=== PATIENT | female | born 1970 | race Caucasian/White ===

== ENCOUNTER 2020-05-20 15:30 | Outpatient (REF) | payer OTHER, SELFPAY ==
[2020-05-20 16:43] LABS: MANUAL DIFF FLAG NO
[2020-05-20 16:53] LABS: Basophils Absolute Auto 0.1 X10*3/uL (0.0-0.2); Basophils Percent Auto 0.9 % (0-2); Eosinophils Absolute Auto 0.3 X10*3/uL (0.0-0.4); Eosinophils Percent Auto 4.1 % (0-4); Hematocrit 37.6 % (37-47); Hemoglobin 12.5 g/dl (12.0-16.0); Imm Gran Abs Auto 0.02 X10*3/uL (0.00-0.03); Imm Gran Pct Auto 0.3 % (0.0-0.4); Lymphocytes Absolute Auto 2.9 X10*3/uL (1.2-4.9); Lymphocytes Percent Auto 43.3 % (20-40); Mean Corpuscular HGB Conc 33.2 g/dl (31.0-35.0); Mean Corpuscular Hemoglobin 33.8 pg (27.0-33.0); Mean Corpuscular Volume 101.6 fL (80-98); Mean Platelet Volume 10.7 fL (9.4-12.3); Monocytes Absolute Auto 0.6 X10*3/uL (0.1-1.2); Monocytes Percent Auto 8.4 % (2-11); Neutrophils Absolute Auto 2.9 X10*3/uL (2.0-8.3); Platelet Count 270 X10*3/uL (160-400); Red Cell Distribution Width 13.1 % (11.0-16.0); White Blood Count 6.7 X10*3/uL (4.8-10.8)
[2020-05-20 18:14] LABS: Folate 10.3 ng/mL (> or = 4.0); Vitamin B12 298 pg/mL (200-900)
== END 2020-05-20 15:31 | disposition home or self-care (01) ==
LOC: HO.LAB 15:30
PROVIDERS: PCP Nurse Practitioner Family; Visit Provider Nurse Practitioner Family
DX: Z00.00 Encounter for general adult medical examination without abnormal findings (principal)
CPT/HCPCS: 36415; 82607; 82746; 85025

== ENCOUNTER 2020-10-25 07:05 | Outpatient (REF) | payer OTHER, SELFPAY ==
[2020-10-25 07:20] LABS: MANUAL DIFF FLAG NO
[2020-10-25 07:22] LABS: Basophils Absolute Auto 0.1 X10*3/uL (0.0-0.2); Basophils Percent Auto 1.4 % (0-2); Eosinophils Absolute Auto 0.4 X10*3/uL (0.0-0.4); Eosinophils Percent Auto 6.1 % (0-4); Hematocrit 39.9 % (37-47); Hemoglobin 13.5 g/dl (12.0-16.0); Imm Gran Abs Auto 0.01 X10*3/uL (0.00-0.03); Imm Gran Pct Auto 0.2 % (0.0-0.4); Lymphocytes Absolute Auto 2.8 X10*3/uL (1.2-4.9); Lymphocytes Percent Auto 46.8 % (20-40); Mean Corpuscular HGB Conc 33.8 g/dl (31.0-35.0); Mean Corpuscular Hemoglobin 34.8 pg (27.0-33.0); Mean Corpuscular Volume 102.8 fL (80-98); Mean Platelet Volume 9.8 fL (9.4-12.3); Monocytes Absolute Auto 0.6 X10*3/uL (0.1-1.2); Monocytes Percent Auto 9.4 % (2-11); Neutrophils Absolute Auto 2.1 X10*3/uL (2.0-8.3); Neutrophils Percent Auto 36.1 % (45-73); Platelet Count 255 X10*3/uL (160-400); Red Blood Count 3.88 X10*6/uL (4.20-5.50); Red Cell Distribution Width 12.7 % (11.0-16.0); White Blood Count 5.9 X10*3/uL (4.8-10.8)
[2020-10-25 07:45] LABS: Alanine Aminotransferase 18 U/L (0-31); Albumin Level 4.1 g/dL (3.5-5.0); Alkaline Phosphatase 53 U/L (39-117); Anion Gap 10 (12-20); Aspartate Amino Transferase 22 U/L (5-31); Bilirubin Total 0.3 mg/dL (0.0-1.0); Blood Urea Nitrogen 14 mg/dL (9-16); Calcium 9.4 mg/dL (8.4-10.2); Carbon Dioxide 29 mmol/L (22-29); Chloride 103 mmol/L (96-108); Estimated Glomerular Filt Rate > 60; Glucose Random 111 mg/dL (60-115); Potassium 4.7 mmol/L (3.3-5.1); Sodium 137 mmol/L (135-145); Total Protein 6.8 g/dL (6.5-8.0)
[2020-10-25 08:06] LABS: Free T4 (Free Thyroxine) 1.17 ng/dL (0.71-1.85); Thyroid Stimulating Hormone 0.47 uIU/mL (0.32-4.0)
== END 2020-10-25 07:06 | disposition home or self-care (01) ==
LOC: HO.LAB 07:05
PROVIDERS: PCP Nurse Practitioner Family; Visit Provider Nurse Practitioner Family
DX: F41.9 Anxiety disorder, unspecified (principal)
CPT/HCPCS: 36415; 80053; 84439; 84443; 85025

== ENCOUNTER 2021-08-12 06:25 | Outpatient (REF) | payer OTHER, SELFPAY ==
[2021-08-12 06:44] LABS: MANUAL DIFF FLAG NO
[2021-08-12 07:16] LABS: Basophils Absolute Auto 0.1 X10*3/uL (0.0-0.2); Basophils Percent Auto 1.2 % (0-2); Eosinophils Absolute Auto 0.3 X10*3/uL (0.0-0.4); Eosinophils Percent Auto 5.2 % (0-4); Hematocrit 38.1 % (37.0-47.0); Hemoglobin 12.6 g/dl (12.0-16.0); Imm Gran Abs Auto 0.01 X10*3/uL (0.00-0.03); Imm Gran Pct Auto 0.2 % (0.0-0.4); Lymphocytes Absolute Auto 2.5 X10*3/uL (1.2-4.9); Lymphocytes Percent Auto 49.6 % (20-40); Mean Corpuscular HGB Conc 33.1 g/dl (31.0-35.0); Mean Corpuscular Hemoglobin 33.3 pg (27.0-33.0); Mean Corpuscular Volume 100.8 fL (80.0-98.0); Mean Platelet Volume 10.6 fL (9.4-12.3); Monocytes Absolute Auto 0.4 X10*3/uL (0.1-1.2); Monocytes Percent Auto 8.5 % (2-11); Neutrophils Absolute Auto 1.8 x10*3/uL (2.0-8.3); Neutrophils Percent Auto 35.3 % (45-73); Platelet Count 253 X10*3/uL (160-400); Red Blood Count 3.78 X10*6/uL (4.20-5.50); Red Cell Distribution Width 12.4 % (11.0-16.0)
[2021-08-12 07:51] LABS: Alanine Aminotransferase 14 U/L (0-31); Alkaline Phosphatase 61 U/L (39-117); Anion Gap 11 (12-20); Aspartate Amino Transferase 22 U/L (5-31); Bilirubin Total 0.4 mg/dL (0.0-1.0); Blood Urea Nitrogen 15 mg/dL (9-16); Calcium 9.5 mg/dL (8.4-10.2); Carbon Dioxide 28 mmol/L (22-29); Chloride 106 mmol/L (96-108); Cholesterol 249 mg/dL; Estimated Glomerular Filt Rate > 60; Glucose Random 96 mg/dL (60-115); HDL Cholesterol 76 mg/dL; LDL Cholesterol Calculated 163 mg/dl; Potassium 4.6 mmol/L (3.3-5.1); Sodium 140 mmol/L (135-145); Total Protein 6.6 g/dL (6.5-8.0); Triglycerides 53 mg/dL
[2021-08-12 08:10] LABS: TSH reflex Free T4 0.25 uIU/mL (0.32-4.0)
[2021-08-12 08:13] LABS: Reflex LDLD? No
[2021-08-12 08:25] LABS: Vitamin B12 310 pg/mL (200-900)
[2021-08-12 08:45] LABS: Free T4 (Free Thyroxine) 1.23 ng/dL (0.71-1.85)
== END 2021-08-12 06:26 | disposition home or self-care (01) ==
LOC: HO.LAB 06:25
PROVIDERS: PCP Nurse Practitioner Family; Visit Provider Nurse Practitioner Family
DX: E03.9 Hypothyroidism, unspecified (principal)
CPT/HCPCS: 36415; 80053; 80061; 82607; 84439; 84443; 85025

== ENCOUNTER 2022-05-28 11:42 | Outpatient (REF) | payer OTHER, SELFPAY ==
--- NOTE | ~2022-05-28 | XR_ITS ---
EXAMINATION: XR ANKLE, LEFT CLINICAL INFORMATION: Left ankle pain, history of prior fracture COMPARISON: 11/23/2018 TECHNIQUE: AP, lateral, and mortise views of the left ankle. FINDINGS: Plate and screw fixation is seen through the distal fibula. There is a old healed fracture of the posterior malleolus of the distal tibia. No acute fractures are seen. Ankle mortise is symmetric. Soft tissues are unremarkable. XR/XR ankle LT min 3V IMPRESSION: No acute process
== END 2022-05-28 11:43 | disposition home or self-care (01) ==
LOC: HO.HOSX 11:42
PROVIDERS: PCP Nurse Practitioner Family; Visit Provider Orthopaedic Surgery
DX: M25.572 Pain in left ankle and joints of left foot (principal)
CPT/HCPCS: 73610

== ENCOUNTER 2022-09-29 08:24 | Outpatient (REF) | payer OTHER, SELFPAY ==
[2022-09-29 09:32] LABS: Estimated Average Glucose 108 mg/dL; Hemoglobin A1c % 5.4 %
[2022-09-29 11:22] LABS: Alanine Aminotransferase 16 U/L (0-31); Alkaline Phosphatase 60 U/L (39-117); Anion Gap 15 (12-20); Aspartate Amino Transferase 26 U/L (5-31); Bilirubin Total 0.4 mg/dL (0.0-1.0); Blood Urea Nitrogen 13 mg/dL (9-16); Calcium 9.7 mg/dL (8.4-10.2); Carbon Dioxide 24 mmol/L (22-29); Chloride 108 mmol/L (96-108); Cholesterol 247 mg/dL; Estimated Glomerular Filt Rate > 60; Glucose Random 110 mg/dL (60-115); HDL Cholesterol 77 mg/dL; LDL Cholesterol Calculated 157 mg/dl; Potassium 4.7 mmol/L (3.3-5.1); Sodium 142 mmol/L (135-145); TSH reflex Free T4 0.21 uIU/mL (0.32-4.0); Triglycerides 68 mg/dL
== END 2022-09-29 08:25 | disposition home or self-care (01) ==
LOC: HO.LAB 08:24
PROVIDERS: PCP Nurse Practitioner Family; Visit Provider Nurse Practitioner Family
DX: Z00.00 Encounter for general adult medical examination without abnormal findings (principal)
CPT/HCPCS: 36415; 80053; 80061; 83036; 84439; 84443

== ENCOUNTER 2022-10-04 15:42 | Outpatient (REF) | payer OTHER, SELFPAY ==
--- NOTE | ~2022-10-04 | MM_ITS ---
EXAMINATION: MM SCREENING DIGITAL BREAST TOMOSYNTHESIS, BILATERAL CLINICAL INFORMATION: Screening. Asymptomatic. The lifetime risk of breast cancer based on the Tyrer-Cuzick Model is 9.8%. COMPARISON: Mammography: 07/23/2020, and dating back to 2014. TECHNIQUE: Digital breast tomosynthesis is performed in both the craniocaudal and mediolateral oblique views along with computer-aided detection (CAD). Synthesized 2D images are generated from the tomosynthesis. FINDINGS: The breasts are heterogeneously dense, which may obscure small masses (ACR BI-RADS breast composition Category c). There are no suspicious masses, suspicious grouped calcifications, or areas of architectural distortion. The parenchymal pattern is stable from prior exams. There are no skin changes. MM/MM tomosynthesis screening BI IMPRESSION: No mammographic evidence of malignancy. ASSESSMENT: BI-RADS BI-RADS 1 - Negative RECOMMENDATION: Routine annual mammography screening. 1 year F/U This examination should not preclude the clinical evaluation of a suspicious palpable abnormality. This patient's information was entered into a reminder system with a target due date for their next mammogram.
== END 2022-10-04 15:43 | disposition home or self-care (01) ==
LOC: HO.MAMMO 15:42
PROVIDERS: Visit Provider Nurse Practitioner Family
DX: Z12.31 Encounter for screening mammogram for malignant neoplasm of breast (principal)
CPT/HCPCS: 77063; 77067

== ENCOUNTER → 2022-10-04 16:00 | Outpatient (BNV) | payer OTHER, SELFPAY | PROVIDERS: Visit Provider Radiology Diagnostic Radiology | DX: Z12.31 Encounter for screening mammogram for malignant neoplasm of breast (principal) | CPT/HCPCS: 77063; 77067 ==

== ENCOUNTER 2022-10-26 16:42 | Outpatient (REF) | payer OTHER, SELFPAY ==
--- NOTE | ~2022-10-26 | MR_ITS ---
EXAMINATION: MR BRAIN WITHOUT AND WITH CONTRAST CLINICAL INFORMATION: Syncope. COMPARISON: Head CT dated 11/23/2018. TECHNIQUE: Multiplanar, multisequence imaging of the brain was performed before and after the intravenous administration of 6 mL of Gadavist. FINDINGS: No diffusion abnormalities are identified to suggest an acute infarct. A cavum septum pellucidum is noted. Ventricular size is otherwise normal. No mass effect or midline shift is seen. Scattered nonspecific white matter signal changes are present in both cerebral hemispheres. No extra-axial fluid collections are seen. The brainstem and cerebellum are normal. There is no abnormal parenchymal or leptomeningeal enhancement. The gradient refocused acquisition is normal. The craniovertebral junction, marrow signal, and midline structures are normal. The major intracranial flow-voids at the level of the [place] of [place] are preserved. The dural venous sinus flow-voids are maintained. There is idph-up-lqprnwyd mucosal thickening with aerosolized mucosal secretions layering dependently in the maxillary sinuses. Trace fluid as well in the dependent right sphenoid sinus. Mild ethmoid sinus mucosal thickening also noted. MR/MR head/brain wo/w con IMPRESSION: 1. No acute intracranial process. Nonspecific mild scattered white matter signal changes. No abnormal enhancement. 2. Jwdn-zy-fxxmbjdz mucosal thickening with aerosolized secretions in the maxillary sinus cavities bilaterally.
[2022-10-26] MEDS: gadobutroL 7.5 ML VIAL IVPUSH (17:26)
== END 2022-10-26 16:43 | disposition home or self-care (01) ==
LOC: HO.MRI 16:42
PROVIDERS: PCP Nurse Practitioner Family; Visit Provider Psychiatry & Neurology Neurology
DX: R55 Syncope and collapse (principal)
CPT/HCPCS: 70553; A9585

== ENCOUNTER 2023-08-29 11:33 | Emergency (ER) | payer OTHER, SELFPAY ==
--- NOTE | ~2023-08-29 | XR_ITS ---
EXAMINATION: XR HAND, RIGHT CLINICAL INFORMATION: Right second finger injury and pain COMPARISON: Right hand x-rays on 12/09/2016 TECHNIQUE: PA, lateral, and oblique views of the right hand. FINDINGS: BONES: Bony structures are intact. There is no focal bone destruction or periosteal reaction seen. JOINTS: Alignment of joints is normal. SOFT TISSUE: Soft tissue is normal. No radiopaque foreign body or abnormal air collection is seen. XR/XR hand RT min 3V IMPRESSION: 1. Unchanged Normal x-rays of right hand. No fracture or dislocation or signs of osteomyelitis are found.
[2023-08-29 11:51] VITALS: BP 150/86; PULSE 70; RESP 16; TEMP 36.9; O2SAT 96; BMI 31.9
--- NOTE | 2023-08-29 11:51 | ED_ITS ---
HPI - General Adult General Chief complaint: Wound/Laceration Stated complaint: lac right pointer finger Time Seen by Provider: 08/29/23 14:50 Source: patient Mode of arrival: ambulatory Limitations: no limitations History of Present Illness ED Provider: Shi Bunch PA-C HPI narrative: Patient is a 53 year old assigned female at with no reported medical history presenting to the emergency department today with right index finger pain. Patient states that she closed her right pointer finger in a folding table. Patient states that she was tidying when she went to collapse a table and it crushed her right index finger. Patient states that she is up to date on her tetanus status. Patient denies any dizziness, lightheadedness, abdominal pain, nausea, vomiting, fever, chills, blurry vision, double vision, loss of vision, chest pain, difficulty breathing, shortness of breath, back pain, night sweats, pain with urination, increased urinary frequency, increased urinary urgency, blood in her urine or stool, syncope or a near syncopal episode, bowel incontinence, bladder incontinence, or any other complaints at this time. Onset (ago): minute(s) Location: right (index finger) Radiation: non-radiation Severity: mild Severity scale (1-10): 3 Quality: aching and dull Pain Consistency: constant Relieving factors: none Exacerbating factors: none Associated symptoms: denies other symptoms Treatments prior to arrival: none Related Data Home Medications ?Medication ?Instructions ?Recorded ?Confirmed escitalopram oxalate 5 mg tablet 5 mg PO DAILY 05/28/22 levothyroxine 112 mcg capsule 112 mcg PO DAILY 05/28/22 loratadine 10 mg tablet 10 mg PO DAILY 05/28/22 Previous Rx's ?Medication ?Instructions ?Recorded amoxicillin 875 mg-potassium 1 tab PO BID 10 days #20 tabs 08/29/23 clavulanate 125 mg tablet Allergies Allergy/AdvReac Type Severity Reaction Status Date / Time bee pollen [BEE STINGS] Allergy Unknown SWELLING Verified 08/29/23 11:54 metronidazole [From FLAGYL] Allergy Unknown RASH Verified 08/29/23 11:54 naproxen [From Naprosyn] AdvReac Nausea Verified 08/29/23 11:54 Review of Systems Constitutional: Constitutional: Reports no additional constitutional complaints, Denies chills, Denies fever(s) and Denies night sweats Eyes: Eyes: Reports no additional eye complaints, Denies blurry vision, Denies change in vision, Denies diplopia, Denies eye discharge, Denies loss of vision and Denies eye pain ENT: Denies dizziness Cardiovascular: Cardiovascular: Reports no additional cardiovascular complaints, Denies chest pain, Denies lightheadedness, Denies Loss of Consciousness and Denies dyspnea Respiratory: Respiratory: Reports no additional respiratory complaints and Denies dyspnea Gastrointestinal: Gastrointestinal: Reports no additional gastrointestinal complaints, Denies abdominal pain, Denies melena, Denies hematochezia, Denies change in bowel habits and Denies change in stool character Genitourinary: Genitourinary: Denies hematuria, Denies urinary frequency, Denies dysuria, Denies urinary incontinence, Denies urinary hesitancy and Denies urinary urgency Musculoskeletal: Musculoskeletal: Reports no additional musculoskeletal complaints, Denies numbness and Denies tingling Comments: right index finger injury Neurologic: Denies dizziness, Denies loss of vision, Denies numbness and Denies tingling Psychiatric: Psychiatric: Reports no additional psychiatric complaints Endocrine: Endocrine: Reports no additional endocrine complaints Hematologic/Lymphatic: Hematologic/Lymphatic: Reports no additional hematologic/lymphatic complaints Allergic/Immunologic: Allergic/Immunologic: Reports no additional allergic/immunologic complaints PMFSH Past Medical History Attestation statement: The following information was validated with the patient. Source: old records reviewed and nursing notes reviewed Social History Social History Patient Tobacco Use Status: Current everyday Tobacco user Cigarettes Per Day: 10 Advance Directives: No Do you have a plan to hurt others: No Plan Current occupational status: employed Current occupation: Director of records - [employer] Physical Exam ED Vital Signs: Vital Signs - 24 hr 08/29/23 11:51 08/29/23 15:24 08/29/23 15:28 Temperature 98.4 F 98.4 F 98.4 F Pulse Rate 70 58 58 Respiratory Rate 16 16 16 Blood Pressure 150/86 H 157/73 H 157/73 H Pulse Oximetry 96 100 100 Oxygen Delivery Method Room Air Room Air Room Air BMI result Body Mass Index 31.9 Const General: cooperative, no acute distress, alert and awake Nutritional Appearance: well nourished Orientation/consciousness: patient oriented x3 Limitations: no limitations HENMT Head: Yes normal to inspection and Yes atraumatic Ears: hearing grossly normal bilaterally and external ears normal General nose exam: Normal external nose present, no nasal discharge noted and no epistaxis Face and sinus: Yes normal facial exam, No abrasion and No laceration Mouth: Normal oral and palatal mucosa present, no drooling and no muffled voice Eyes General: appearance normal, both eyes and all related structures Periorbital: periorbital findings normal Eyelids: Yes eyelids normal Conjunctivae: conjunctivae normal Pupils: Equal, round and reactive pupils present EOM: EOMs intact bilaterally Neck Neck: Yes normal visual inspection, Yes full ROM and Yes no lymphadenopathy Chest Chest palpation & inspection: normal inspection of the chest Resp Effort & Inspection: normal respiratory effort and able to speak in complete sentences GI Inspection: Yes normal to inspection Neuro General: patient oriented x3 and moves all extremities Cranial nerves: Yes Equal, round and reactive pupils present Cognition (Neuro): normal cognition Motor exam (neuro): 5/5 motor strength present throughout Sensory Exam: Normal double simultaneous stimulation for sensation Coordination: [id number] test normal Extrem Other: small skin avulsion to the palmar aspect of the distal right index finger - no active bleeding, no gaping areas General: Yes full ROM and Yes capillary refill normal Psych Appearance: grossly normal Mental Status: mental status grossly normal Affect: normal affect Attitude: cooperative Thought process: Normal thought process present Thought content: Normal thought content present Insight: Good insight present (Psych) Course Course Course Narrative: RME performed by Shi Bunch PA-C. Patient is a 53 year old assigned female at presenting to the emergency department with right index finger injury. Patient states she smashed her right index finger in a folding table. Patient is up to date on tetanus. Detailed physical exam and review of systems are deferred to the primary substance abuse counselor. Imaging ordered. Patient placed back in the waiting room pending room availability and results. Procedures Laceration Laceration 1: Site: other (2nd digit) Side (If applicable): right Size (cm): 0.5 Description: flap and irregular Depth: simple, single layer Pre-repair: wound explored, irrigated extensively and deep structures intact Skin layer closed with: other (dermabond) Size (cm): other (dermabond) Technique: other (dermabond) Orthopedic Splinting/Casting Injury #1: Side: right Upper Extremity Injury Location: finger (2nd) Upper Extremity Immobilizer: finger (other) Medical Decision Making Medical Decision Making MDM Narrative: Patient is a 53 year old assigned female at with no reported medical history presenting to the emergency department today with right 2nd digit pain. Patient's physical exam was as noted in the physical exam portion of this note. Patient's right hand x-ray got read as no acute process. However, as I was reviewing the images and comparing to her previous R hand XR in 2017, I noticed a small irregularity in the distal digit. Given the patient's clinical presentation / mechanism of injury, will treat as though is fractured. I explained my physical exam findings as well as all test results to the patient. I answered all questions asked by the patient. Patient's right index finger was repaired with dermabond, without incident. Patient's PMS was intact prior to and after laceration repair. Patient's right index finger was placed in a splint, without incident. Patient's PMS was intact prior to and after splint placement. I stressed the importance of the patient taking her medication as directed (either prescribed or as the over the counter packaging recommends). I stressed the importance of the patient following up with her primary care provider and an orthopedic provider. I stressed the importance of the patient returning to the emergency department immediately if her symptoms were to worsen or if she were to develop any dizziness, shortness of breath, difficulty breathing, chest pain, blurry vision, loss of vision, nausea, vomiting, abdominal pain, fever, chills, back pain, or any other complaints. Patient verbalized agreement and understanding with this treatment plan and discharge. Differential Diagnosis Differential Diagnoses: The differential diagnosis associated with the presentation includes Right index finger injury Right index finger fracture Right index finger laceration Right index finger avulsion Admission/Observation Consideration of admission/observation: Escalation of care including admission/observation considered Patient would have been admitted to the hospital had her work up had any find ings where hospital admission was appropriate and her clinical presentation warranted hospital admission. Independent Interpretation I performed an independent interpretation of an: Plain X-Ray Interpretation: My interpretation different than the radiologist's impression of this imaging study listed below. That is expanded on in the MDM Rationale portion of this note. Please refer to that section of this note for my interpretation. EXAMINATION: XR HAND, RIGHT CLINICAL INFORMATION: Right second finger injury and pain COMPARISON: Right hand x-rays on 12/09/2016 TECHNIQUE: PA, lateral, and oblique views of the right hand. FINDINGS: BONES: Bony structures are intact. There is no focal bone destruction or periosteal reaction seen. JOINTS: Alignment of joints is normal. SOFT TISSUE: Soft tissue is normal. No radiopaque foreign body or abnormal air collection is seen. XR/XR hand RT min 3V IMPRESSION: 1. Unchanged Normal x-rays of right hand. No fracture or dislocation or signs of osteomyelitis are found. Dictated By: Jones Vazquez Signed By: Electronically signed by Jones Vazquez 08/29/23 144 Radiology Impression Discussion of test interpretation with radiology: I have reviewed the radi ologist's reading. Discharge Plan Discharge Clinical Impression: Avulsion of skin, Finger fracture Patient Disposition: Home, Self-Care Instructions: Finger Fracture (ED), Skin Avulsion (ED) Additional Instructions: The radiologist read your hand x-ray as negative for any acute fractures. However, as I was reviewing the images, I have concern for fracture of the 2nd digit (the digit you injured). Leave the splint in place until you follow up with the orthopedic team. UNLESS - you begin to have any numbness, tingling, or change in feeling/sensation/pain of the digit. Do NOT get the affected area wet. Take your antibiotic as prescribed. Follow up with your primary care provider and an orthopedic provider. Return to the emergency department immediately if your symptoms worsen or if you develop any dizziness, shortness of breath, difficulty breathing, chest pain, blurry vision, loss of vision, nausea, vomiting, abdominal pain, fever, chills, back pain, or any other complaints. Please see the information below about our Patient Portal. If you are not yet enrolled in the [facility] Patient Portal, you will receive an enrollment email invitation following your visit to any [facility] [place] care setting. You may also self-enroll in the Patient Portal by visiting our website: [email or web address] The following information is required to access the Patient Portal: - Your [facility] Medical Record Number - Your personal home email address (must match what is in your electronic medical record, Registration staff can assist with this) - Name - Date of Capabilities of the Patient Portal: - Message some providers - View upcoming appointments - Access your health summary, medical history, and visit history - View current conditions and allergies - View procedure and lab results - View your medications, including guidelines, side effects, and precautions - Complete pre-appointment questionnaires requested by your provider - Ready summary reports of your office visits and procedures To access the Patient Portal Mobile Drew, follow these directions: - Search [employer] in the Drew Store or dough Store - Download the Drew - Search for [facility] - Enter your login/password Prescriptions: New amoxicillin-pot clavulanate 875-125 mg tablet 1 tab PO BID 10 Days Qty: 20 0RF No Action levothyroxine 112 mcg capsule 112 mcg PO DAILY loratadine 10 mg tablet 10 mg PO DAILY escitalopram oxalate 5 mg tablet 5 mg PO DAILY Referrals: [facility] [place] Family Medicine [Provider Group] (Call to establish and follow up with a primary care provider. If you already have a primary care provider, please follow up with them.) [facility] [place] [place] Primary [facility] [Provider Group] [facility] [place] [place] [facility],[place] [Provider Group] [facility] [Provider Group] (Call to establish and follow up with an orthopedic provider.) Stand Alone Forms: Work/School Release Interventions: ED Discharge Assessment Last Done: 08/29/23 15:28 Discharge Date/Time: 08/29/23 15:30 Print Language: Yi
[2023-08-29 15:24] VITALS: BP 157/73; PULSE 58; RESP 16; TEMP 36.9; O2SAT 100
[2023-08-29 15:28] VITALS: BP 157/73; PULSE 58; RESP 16; TEMP 36.9; O2SAT 100
== END 2023-08-29 15:30 | disposition home or self-care (01) ==
PROVIDERS: Emergency Provider Emergency Medicine
DX: S61.210A Laceration without foreign body of right index finger without damage to nail, initial encounter (principal); M79.644 Pain in right finger(s); W26.9XXA Contact with unspecified sharp object(s), initial encounter; Y93.9 Activity, unspecified; Y92.9 Unspecified place or not applicable; Y99.8 Other external cause status
CPT/HCPCS: 12041; 29130; 73130; 99283; 99284

== ENCOUNTER 2023-11-03 13:02 | Outpatient (AMB) | payer OTHER, SELFPAY ==
--- NOTE | 2023-11-03 13:10 | MHC.OFFWIV ---
Intake Vital Signs 11/03/23 13:11 Height 5 ft 3 in Weight 170 lb BMI 30.1 BP 144/94 H Blood Pressure Location Rt brachial Position Sitting Pulse 73 Pulse Source Pulse Oximeter Temp 98.4 F Temp Source Oral Pulse Oximetry (%) 98 Oxygen Delivery Method Room Air Intake Visit Reasons: [employer] WC LT ankle injury Intake Note: pt c/o LT ankle pain. Started last night. Walking out of work. Tripped on sidewalk Patient Tobacco Use Status: Current everyday Tobacco user Allergies bee pollen [BEE STINGS] Allergy (Unknown, Verified 11/03/23 13:11) SWELLING metronidazole [From FLAGYL] Allergy (Unknown, Verified 11/03/23 13:11) RASH naproxen [From Naprosyn] Adverse Reaction (Verified 11/03/23 13:11) Nausea Do you need a note to return to daycare/school/sports/work: Yes HPI [employer] WC LT ankle injury HPI Details This note is constructed using voice recognition software. While every effort has been made to ensure accuracy, test deck supervisor errors may have been included. The patient is a 53 year old female who presents to the clinic today with left ankle and foot pain after rolling her foot stepping off the curb at work. She reports that she did have extensive surgery to her left ankle after an injury in 2016, so happened to have an Aircast boot available to her, which she did place on shortly after the event. Her pain is primarily over the top of the left foot laterally. She denies redness and warmth, but does report swelling to the area. She reports pain is worse in the top of the foot on extension of the ankle, however reports that she has full range of motion in the ankle. 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[employer] Review of Systems Const All systems reviewed & are unremarkable except as noted in HPI and below Physical Exam Vital Signs: Last Vital Signs Temp 98.4 F 11/03/23 13:11 Pulse 73 11/03/23 13:11 BP 144/94 H 11/03/23 13:11 Pulse Ox 98 11/03/23 13:11 Oxygen Delivery Method Room Air 11/03/23 13:11 BMI result Body Mass Index 30.1 Const General: cooperative, healthy appearing, comfortable, no acute distress and alert Orientation/consciousness: patient oriented x3 Limitations: no limitations Skin General skin exam: no rashes or lesions noted, elasticity normal and turgor normal Neuro General: patient oriented x3 Extrem Other: Tender to palpation along left lateral anterior foot along 4th and 5th metatarsal with ecchymosis present. Tenderness worsened with extension of the foot. Full range of motion. Strength 5/5. Distal neurovascular exam intact. General: Yes full ROM, Yes capillary refill normal and Yes normal exam except as noted Psych Appearance: grossly normal Mental Status: mental status grossly normal Speech and movement: Normal speech and movement present Affect: normal affect Assessment & Plan Assessment & Plan (1) Left ankle pain: Code(s): M25.572 - Pain in left ankle and joints of left foot Qualifiers: Chronicity: acute Qualified Code(s): M25.572 - Pain in left ankle and joints of left foot Plan: X-ray to rule out fracture. Advised wear of air cast, rest, ice, elevation, and NSAIDs for pain. (2) Left foot pain: Code(s): M79.672 - Pain in left foot Plan: X-ray reviewed appears to show nondisplaced fracture in the proximal 5th metatarsal. Advised wear of air cast, rest, ice, elevation, and NSAIDs for pain. Patient requests referral to [facility]. Plan See above for full details and plan. Orders: Orders XR foot LT min 3V Today M79.672 - Pain in left foot XR ankle LT 2V Today M25.572 - Pain in left ankle and joints of left foot Referrals Orthopedics Referral S92.309A - Fracture of unspecified metatarsal bone(s), unspecified foot, initial encounter for closed fracture Coding Level of Care Code Est Pt Level 4 (20352) Diagnoses Acute left ankle pain M25.572 Chronicity: acute Left foot pain M79.672
[2023-11-03 13:11] VITALS: BP 144/94; PULSE 73; TEMP 36.9; O2SAT 98; BMI 30.1
== END 2023-11-03 14:06 | disposition home or self-care (01) ==
PROVIDERS: PCP Nurse Practitioner Family; Visit Provider Registered Nurse
DX: M25.572 Pain in left ankle and joints of left foot (principal); M79.672 Pain in left foot
CPT/HCPCS: 99214

== ENCOUNTER 2023-11-03 13:30 | Outpatient (REF) | payer OTHER, SELFPAY ==
--- NOTE | ~2023-11-03 | XR_ITS ---
EXAMINATION: RADIOGRAPH LEFT ANKLE AND LEFT FOOT CLINICAL INFORMATION: Pain. COMPARISON: Radiograph left ankle 05/28/2022. TECHNIQUE: 2 views of the left ankle and 3 views of the left foot. FINDINGS: Redemonstration of lateral fixation plate with multiple traversing screws in the distal fibula. No evidence of hardware fracture. No significant perihardware lucency. New mildly displaced fracture at the base of the fifth metatarsal. New subtle osseous fragments adjacent to the lateral surface of the anterior calcaneus on the frontal view, suspicious for avulsion fracture. New cortical irregularity with small osseous fragments adjacent to the distal fibula/lateral malleolus, suspicious for avulsion fracture. Significant overlying soft tissue swelling along the lateral ankle and lateral hind foot. XR/XR foot LT min 3V IMPRESSION: 1. New mildly displaced fracture at the base of the fifth metatarsal. 2. New subtle osseous fragments adjacent to the lateral surface of the anterior calcaneus, suspicious for avulsion fracture. 3. New cortical irregularity with small osseous fragments adjacent to the distal fibula/lateral malleolus, suspicious for avulsion fracture. 4. Significant overlying soft tissue swelling along the lateral ankle and lateral hind foot. Electronically signed by: Mansi Little MD 11/03/2023 02:51 PM EDT
--- NOTE | ~2023-11-03 | XR_ITS ---
EXAMINATION: RADIOGRAPH LEFT ANKLE AND LEFT FOOT CLINICAL INFORMATION: Pain. COMPARISON: Radiograph left ankle 05/28/2022. TECHNIQUE: 2 views of the left ankle and 3 views of the left foot. FINDINGS: Redemonstration of lateral fixation plate with multiple traversing screws in the distal fibula. No evidence of hardware fracture. No significant perihardware lucency. New mildly displaced fracture at the base of the fifth metatarsal. New subtle osseous fragments adjacent to the lateral surface of the anterior calcaneus on the frontal view, suspicious for avulsion fracture. New cortical irregularity with small osseous fragments adjacent to the distal fibula/lateral malleolus, suspicious for avulsion fracture. Significant overlying soft tissue swelling along the lateral ankle and lateral hind foot. XR/XR ankle LT 2V IMPRESSION: 1. New mildly displaced fracture at the base of the fifth metatarsal. 2. New subtle osseous fragments adjacent to the lateral surface of the anterior calcaneus, suspicious for avulsion fracture. 3. New cortical irregularity with small osseous fragments adjacent to the distal fibula/lateral malleolus, suspicious for avulsion fracture. 4. Significant overlying soft tissue swelling along the lateral ankle and lateral hind foot. Electronically signed by: Mansi Little MD 11/03/2023 02:51 PM EDT
== END 2023-11-03 13:31 | disposition home or self-care (01) ==
LOC: HO.HMGCX 13:30
PROVIDERS: PCP Nurse Practitioner Family; Visit Provider Registered Nurse
DX: M25.572 Pain in left ankle and joints of left foot (principal); M79.672 Pain in left foot
CPT/HCPCS: 73600; 73630

== ENCOUNTER 2023-11-28 15:31 | Outpatient (REF) | payer OTHER, SELFPAY ==
--- NOTE | ~2023-11-28 | MM_ITS ---
EXAMINATION: MM SCREENING DIGITAL BREAST TOMOSYNTHESIS, BILATERAL CLINICAL INFORMATION: Screening. Asymptomatic. COMPARISON: Mammography: Comparison is made with available priors TECHNIQUE: Digital breast mammography with tomosynthesis is performed in both the craniocaudal and mediolateral oblique views along with computer-aided detection (CAD). FINDINGS: There are scattered areas of fibroglandular density (ACR BI-RADS breast composition Category b). There are no significant masses, abnormal calcifications, or other abnormalities. MM/MM tomosynthesis screening BI IMPRESSION: No mammographic evidence of malignancy. ASSESSMENT: BI-RADS BI-RADS 1 - Negative RECOMMENDATION: Routine annual mammography screening. 1 year F/U This examination should not preclude the clinical evaluation of a suspicious palpable abnormality. This patient's information was entered into a reminder system with a target due date for their next mammogram. Electronically signed by: Jina Morgan DO 12/08/2023 06:36 PM EDT
== END 2023-11-28 15:32 | disposition home or self-care (01) ==
LOC: HO.MAMMO 15:31
PROVIDERS: PCP Nurse Practitioner Family; Visit Provider Nurse Practitioner Family
DX: Z12.31 Encounter for screening mammogram for malignant neoplasm of breast (principal)
CPT/HCPCS: 77063; 77067

== ENCOUNTER → 2023-11-28 16:00 | Outpatient (BNV) | payer OTHER, SELFPAY | PROVIDERS: PCP Nurse Practitioner Family; Visit Provider Internal Medicine | DX: Z12.31 Encounter for screening mammogram for malignant neoplasm of breast (principal) | CPT/HCPCS: 77063; 77067 ==

== ENCOUNTER 2024-12-03 15:31 | Outpatient (REF) | payer OTHER, SELFPAY ==
--- OUTSIDE RECORDS SUMMARY | 2024-12-03 17:53 | XMS_ITS | Encounter Summary ---
Author Organization [facility] Address [address] [place] [id number] Phone Care Team Providers Care Pest Controller Name Role Phone Carrie Baltazar Unavailable [phone] Julián Brady MD Unavailable [phone] Julián Brady MD Primary Care Provider [phone] Casandra Shanks ARMATURE REWINDER Primary Care Provider [phone] Encounter Details Date Type Department Care Team (Late st Contact Info) Description 08/14/2018 Procedure Pass [facility] Admitting Dept Virtual Department [address] [place] [address] Social History Tobacco Use Types Packs/Day Years Used Date Smoking Tobacco: Never Smokeless Tobacco: Never Alcohol Use Standard Drinks/Week Comments Yes 0 (1 standard drink = 0.6 oz pur e alcohol) infrequent Comments No Sex and Gender Information Value Date Recorded Sex Assigned at Female 12/22/2022 5:15 PM EDT Legal Sex Female 9:34 PM EDT Gender Identity Female 12/22/2022 5:15 PM EDT Sexual Orientation Not on file documented as of this encounter Plan of Treatment Not on file documented as of this encounter Visit Diagnoses Not on filedocumented in this encounter Care Teams Pest Controller Relationship Specialty Start Date End Date Julián Brady MD [address] [place] [phone] [email or web address] PCP - General 03/03/17 12/21/22 Casandra Shanks, ARMATURE REWINDER [address] [address] PCP - General Nurse Practitioner 12/22/22 Carrie Baltazar [place] [address] Historical LMR Provider 12/16/16 2 Julián Brady MD [address] [address] [email or web address] Historical LMR Provider 12/16/16 03/07/21 documented as of this encounter Additional Source Comments The information contained in this document represents components of the legal health record. It is not the complete legal health record.[facility]
--- OUTSIDE RECORDS SUMMARY | 2024-12-03 17:53 | XMS_ITS | Clinical Summary ---
Author Organization [facility] Address [address] [address] Phone Care Team Providers Care Show Operations Supervisor Name Role Phone Casandra Shanks NP Primary Care Provider [phone] Allergies Active Allergy Reactions Criticality Noted Date Comments Cephalexin 08/10/2017 Metronidazole Hives 05/15/2014 Naproxen 08/10/2017 Medications norethindrone-e thinyl estradiol (MICROGESTIN 03/19) 1-0.02 mg per tabletIndicatio ns: control Take 1 tablet by mouth daily. 3 packet 3 8 Active escitalopram oxalate (LEXAPRO) 5 MG tablet Take 1 tablet by mouth every morning. 3 Active nicotine (NICODERM CQ) 21 mg/24 hr APPLY 1 PATCH EVERY DAY BY TRANSDERMAL ROUTE FOR 28 DAYS. 3 Active levothyroxine (SYNTHROID, LEVOTHROID) 112 MCG tablet 3 Active Active Problems Problem Noted Date Diagnosed Date Acquired hypothyroidism 08/10/2017 Immunizations Immunization Administration Dates Next Due COVID-19, Unspecified Formulation 03/13/2020 Influenza Quadrivalent Preservative Free IM 10/29,11/23/2017 Influenza Quadrivalent w/ Preservative IM 2019 Td (adult),2 Lf Tetanus Toxoid, PF, Adsorbed Family History Medical History Relation Comments Hypertension Brother Hypertension Father Thyroid disease Father Colon cancer Maternal Grandmother Autoimmune disease Paternal Grandfather Relation Status Comments Brother Father Maternal Grandmother Paternal Grandfather Social History Tobacco Use Types Packs/Day Years Used Date Smoking Tobacco: Every Day Cigarettes Smokeless Tobacco: Never Tobacco Cessation:Ready to Q uit: Not Asked; Counseling Given: Not Answered Alcohol Use Standard Drinks/Week Comments Yes 0 (1 standard drink = 0.6 oz pur e alcohol) infrequent Education Answer Date Recorded Are you interested in more education? Not on diana e 06/25/2022 Are you concerned about learning? Not on file 06/25/2022 No 06/25/2022 No 06/25/2022 Digital Access Answer Date Recorded No 07/24/2022 No 07/24/2022 Reliable internet access at home? Not on file 07/24/2022 Device with a working camera? Not on file Intimate Partner Violence Answer Date R ecorded Are you denied basic needs s uch as food, clothing, or medical care? No 12/22/2022 In the past 12 months have y ou been in a relationship with a person who hurts, threatens, or tries to control you? No 12/22/2022 Are you denied basic needs s uch as food, clothing, or medical care? No 12/22/2022 In the past 12 months have y ou been in a relationship with a person who hurts, threatens, or tries to control you? No 12/22/2022 Comments No Sex and Gender Information Value Date Recorded Sex Assigned at Female 12/22/2022 5:15 PM EDT Legal Sex Female 9:34 PM EDT Gender Identity Female 12/22/2022 5:15 PM EDT Sexual Orientation Not on file Last Filed Vital Signs Vital Sign Reading Time Taken Comments Blood Pressure 152/100 12/22/2022 7:12 PM EDT Pt moving during measurement. Pulse 57 12/22/2022 7:12 PM EDT Temperature 36.6 C (97.9 F) 12/22/2022 7:12 PM EDT Respiratory Rate 18 12/22/2022 7:12 PM EDT Oxygen Saturation 99% 12/22/2022 7:1 2 PM EDT Inhaled Oxygen Concentration - - Weight 74.8 kg (165 lb) 12/22/2022 5:17 PM EDT Height 160 cm (5' 3 ) 12/22/2022 5:17 PM EDT Body Mass Index 29.23 12/22/2022 5:17 PM EDT Plan of Treatment Health Maintenance Due Date Last Done Comments LIPID PANEL 1970 TSH LEVEL 1970 DEPRESSION SCREENING 1982 SMOKING Hx and SMOKELESS TOBACCO SCREENING 05/09/1983 HEPATITIS C SCREENING 1988 HIV ONE-TIME SCREENING (18-6 5 YEARS) 1988 PNEUMOCOCCAL VACCINES (50+ years) (1 of 2 - PCV) 1989 MAMMOGRAM 2010 COLOGUARD 05/09/2015 FIT TEST 05/09/2015 SIGMOIDOSCOPY 05/09/2015 VIRTUAL COLONOSCOPY 05/09/2015 FOBT 07/01/2019 06/30/2018 ZOSTER VACCINES (1 of 2) 2020 SCREENING FOR DIABETES 04/28/2021 04/28/2018 INFLUENZA VACCINE (#1) 2024 , 12/24/2019, 11/23/2017 COVID-19 VACCINE ( - 2024-2 6 season) 2024 01/06/2021, 04/10/2020, 03/13/2020 PAP SMEAR 08/12/2025 08/12/2022, 11/30/2019 COLONOSCOPY 08/14/2028 08/14/2018 COLORECTAL CANCER SCREENING 08/14/2028 Adult Td,Tdap Booster 11/23/2028 11/23/2018 HEPATITIS A VACCINES Aged Out No long er eligible based on patient's age to complete this topic HIB VACCINES Aged Out No longer eligi ble based on patient's age to complete this topic MENINGOCOCCAL VACCINES (ACWY) Aged Out No longer eligible based on patient's age to complete this topic MENINGOCOCCAL VACCINES (B) Aged Out N o longer eligible based on patient's age to complete this topic Medical Devices Implanted Type Area Computer Art Instructor Device Identifier Shelf Expiration Date Model / Serial / Lot Metal Left: Ankle Procedures Procedure Name Priority Date/Time Associated Diagnosis Comments PAP TEST Routine 08/12/2022 12:00 AM EDT ENDOSCOPY, COLON 08/14/2018 1:06 PM EDT FECAL OCCULT BLOOD, MULTIPLE Routine 06/30/2018 1:34 PM EDT Bloating Change in bowel habits Diarrhea, unspecified type from Last 3 Months or Most Recently Relevant to Health Maintenance Results * Pap Test (08/12/2022 12:00 AM EDT) 08/12/2022 08/16/2022 8:2 4 AM EDT Narrative SEE NARRATIVE - 08/18/2022 8:17 [place] [address] Passenger Service Agent: Marifer Taylor MD SYSTEMS SECURITY ANALYST Cytology Report FINAL DIAGNOSIS A. PAP SMEAR (SUREPATH) CE: SPECIMEN ADEQUACY: Satisfactory for evaluation; transformation zone present. INTERPRETATION: NEGATIVE FOR INTRAEPITHELIAL LESION OR MALIGNANCY. Coccobacilli consistent with shift in hari Electronically Signed Out By: AMAYA Key(ASCP) The Pap test is a screening test primarily for squamous cancers and precursors and has associated false-negative and false-positive results. New technologies such as liquid-based preparations may decrease but will not eliminate all false-negative results. Regular sampling and follow-up of unexplained clinical signs and symptoms are recommended to minimize false negative results. PROCEDURES/ADDENDA HPV Testing (Requested) Ordered Date: 08/16/2022 A. PAP SMEAR (SUREPATH) CE: Human Papilloma Virus Test NEGATIVE for high-risk Human Papilloma Virus types 16, 18, 45 and the Other high risk probe set (Includes 31, 33, 35, 39, 51, 52, 56, 58, 59, 66, 68) Note: Testing performed by [email or web address] Onclarity HR-HPV analysis. Clinical correlation is advised. This HPV test was performed at [facility], [address] [place] [address]. This test has been FDA approved for SurePath cervical cytology specimens. The accuracy and precision of this test for all other specimen sources has been verified in the Cytopathology Laboratory of the [facility] and has not been cleared or approved by the U.S. Food and Drug Administration. Clinical correlation is advised. CLINICAL HISTORY Date of Last Menstrual Period: Not Provided Menstrual History: Unknown Other Clinical Conditions: Screening Pap SPECIMEN SOURCE A: PAP SMEAR (SUREPATH) CE Patient Name: LILLIAM TELLES : 1970 (Age: 52) Sex: F Institution: [facility] Location: [facility] Date of Collection: 08/12/2022 Date of Reported: 08/18/2022 08:17 Results to: Casandra Shanks NP us Casandra Shanks NP CYTOLOGY ORDERABLES Final Resul t SEE NARRATIVE * ENDOSCOPY, COLON (08/14/2018 1:06 PM EDT) Narrative Transcriptions Tacho Kevin MD - 08/14/2018 1:06 PM EDT Patient Name: Lilliam Telles Attending MD:: TACHO KEVIN MD, Procedure Date: 08/14/2018 1:06 PM Date of : 1970 Age: 48 Admit Type: Outpatient Gender: Female Room: [place] [address] Referring MD: JULIÁN BRADY MD Exam Type: Colonoscopy Indications: Chronic diarrhea Medications: Monitored Anesthesia Care Procedure: Informed consent was obtained from the patient after discussion of the indications, limitations,alternatives, benefits, and risks of the procedure. Risksspecifically discussed include but are not limited to medication reactions, missed lesions, bleeding, perforation, orthe need for emergent surgery. Throughout the procedure, the patient's blood pressure, pulse, end-tidal CO2, and oxygen saturations were monitored continuously. The Olympus pediatric variable colonoscope [id number]-[id number] was introduced through the anus and advanced to the terminal ileum. The colonoscopy was performed without difficulty. The patient tolerated the procedure well.The quality of the bowel preparation was excellent. The quality of the bowel preparation was evaluated usingthe BBPS (Closplint Bowel Preparation Scale) with scores of: Right Colon = 3, Transverse Colon = 3 and Left Colon =3 (entire mucosa seen well with no residual staining,small fragments of stool or opaque liquid). The total BBPSscore equals 9. Complications: No immediate complications. Estimated blood loss:Minimal. Findings: The perianal and digital rectal examinations werenormal. A 3 mm polyp was found in the sigmoid colon. The polypwas sessile. The polyp was removed with a cold biopsyforceps. Resection and retrieval were complete. Internal hemorrhoids were found during retroflexion.The hemorrhoids were moderate. Biopsies for histology were taken with a cold forcepsfrom the right colon and left colon for evaluation of microscopic colitis. The exam was otherwise normal throughout the examined colon. Impression: - One 3 mm polyp in the sigmoid colon, removed with acold biopsy forceps. Resected and retrieved. - Internal hemorrhoids. - Biopsies were taken with a cold forceps from theright colon and left colon for evaluation of microscopiccolitis. Recommendation: - Discharge patient to home. - Await pathology results; if hyperplastic polyp f/u c-scope 10 years - Return to GI office as previously scheduled. TACHO KEVIN MD, 08/14/2018 1:28:08 PM This report has been signed electronically. Number of Addenda: 0 Note Initiated On: 08/14/2018 1:06 PM Procedure Code(s): --- Professional --- 56478, Colonoscopy, flexible; with biopsy, single or multiple --- Technical --- 05366, Colonoscopy, flexible; with biopsy, single or multiple Diagnosis Code(s): --- Professional --- D12.5, Benign neoplasm of sigmoid colon K64.8, Other hemorrhoids K52.9, Noninfective gastroenteritis and colitis, unspecified --- Technical --- D12.5, Benign neoplasm of sigmoid colon K64.8, Other hemorrhoids K52.9, Noninfective gastroenteritis and colitis, unspecified CPT copyright 2016 [employer]. All rights reserved. The codes documented in this report are preliminary and upon ecologist reviewmay be revised to meet current compliance requirements. [address] [place] [address] Julián Brady MD GI PROCEDURE ORDERABLES F inal Result * Fecal occult blood, multiple (06/30/2018 1:34 PM EDT) FECAL OCC BLD 1 DATE 50,119 [facility] Occult bld, stool, #1 Negative Negative [facility] FECAL OCC BLD 2 DATE 50,219 [facility] OCCULT BLD, STOOL, #2 Negative Negative [facility] FECAL OCC BLD 3 DATE 50,319 [facility] FECAL OCC BLD 3 RSLT Negative Negative [facility] Stool (Stool) 06/30/2018 1:3 4 PM EDT 06/30/2018 1:45 PM EDT Anuradha Mahan CNP BODY FLUIDS AND STOOLS ORD ERABLES Final Result [facility] [address] [place] [address] from Last 3 Months or Most Recently Relevant to Health Maintenance Insurance [facility] Care Teams Show Operations Supervisor Relationship Specialty Start Date End Date Casandra Shanks NP PCP - General Nurse Practitioner 12/22/22 Additional Source Comments The information contained in this document represents components of the legal health record. It is not the complete legal health record.[facility]
--- OUTSIDE RECORDS SUMMARY | 2024-12-03 17:53 | XMS_ITS | Encounter Summary ---
Author Organization [facility] Address [address] [place] [address] Phone Care Team Providers Care Communications Instructor Name Role Phone Carrie Baltazar Unavailable [phone] Julián Brady MD Unavailable [phone] Julián Brady MD Primary Care Provider [phone] Casandra Shanks NP Primary Care Provider [phone] Encounter Details Date Type Department Care Team (Latest Contact Info) Description 04/28/2018 Transcribe Orders [facility] [address] [place] [id number] Anuradha Mahan CNP [address] [place] [id number] [email or web address] Bloating (Primary Dx); Change in bowel habits; Diarrhea, unspecified type Social History Tobacco Use Types Packs/Day Years [...] on file documented as of this encounter Results * Ova and parasites, stool (06/30/2018 1:34 PM EDT) Specimen Source/ Description STOOL STOOL [facility] Special Requests None [facility] DIRECT EXAM No parasites found by Trichrome Stain [facility] DIRECT EXAM NO PARASITES FOUND BY DIRECT OR CONCENTRATION METHODS [facility] Report Status 07/05/2018 FINAL [facility] Stool (Stool) 06/30/2018 1:3 4 PM EDT 06/30/2018 1:44 PM EDT Anuradha Mahan [facility] - GENERAL ORD ERABLES Final Result Performing Organization Address [facility]/ZIP Co de Phone Number [address] [address] * Fecal occult blood, multiple (06/30/2018 1:34 PM EDT) FECAL OCC BLD 1 DATE 50,119 [facility] Occult bld, stool, #1 Negative Negative [facility] FECAL OCC BLD 2 DATE 50,219 [facility] OCCULT BLD, STOOL, #2 Negative Negative [facility] FECAL OCC BLD 3 DATE 50,319 [facility] FECAL OCC BLD 3 RSLT Negative Negative [facility] Stool (Stool) 06/30/2018 1:3 4 PM EDT 06/30/2018 1:45 PM EDT Anuradha Mahan CNP BODY FLUIDS AND STOOLS ORD ERABLES Final Result Performing Organization Address [facility] Co de Phone Number [address] [address] * Fecal leukocyte examination (06/30/2018 1:34 PM EDT) Specimen Source/ Description STOOL STOOL [facility] Special Requests None PROGRAMMER DEVELOPER [facility] GRAM STAIN NO WBC'S [facility] Report Status 07/01/2018 FINAL [facility] Stool (Stool) 06/30/2018 1:3 4 PM EDT 06/30/2018 1:44 PM EDT Anuradhapercy Mahan [facility] - GENERAL ORD ERABLES Final Result [facility] [address] [place] [address] * Calprotectin, stool (06/30/2018 1:34 PM EDT) Calprotectin, stool <27.1 <50.0 mcg/g [facility] Calprotectin Interp Negative Negative [facility] Stool (Stool) 06/30/2018 1:3 4 PM EDT 06/30/2018 1:45 PM EDT Anuradha Mahan CNP BODY FLUIDS AND STOOLS ORD ERABLES Final Result Performing Organization Address City/[facility]/ZIP Co de Phone Number [address] [address] * Stool culture (06/30/2018 1:34 PM EDT) Specimen Source/ Description STOOL STOOL STOOL [facility] Special Requests None [facility] Culture/Test NO SALMONELLA, SHIGELLA OR CAMPYLOBACTER ISOLATED No gram negative hari isolated [facility] Report Status 07/03/2018 FINAL [facility] Stool (Stool) 06/30/2018 1:3 4 PM EDT 06/30/2018 1:44 PM EDT Anuradha Mahan CNP MICROBIOLOGY - GENERAL ORD ERABLES Final Result Performing Organization Address [facility]/ZIP Co de Phone Number [facility] [address] [place] [address] * Ova and parasites, stool (06/29/2018 1:33 PM EDT) Specimen Source/ Description STOOL STOOL STOOL [facility] Special Requests None [facility] DIRECT EXAM No parasites found by Trichrome Stain [facility] DIRECT EXAM NO PARASITES FOUND BY DIRECT OR CONCENTRATION METHODS [facility] Report Status 07/05/2018 FINAL [facility] Stool (Stool) 06/29/2018 1:3 3 PM EDT 06/30/2018 1:44 PM EDT Anuradha Mahan CNP MICROBIOLOGY - GENERAL ORD ERABLES Final Result Performing Organization Address City/[facility]/ZIP Co de Phone Number [address] [address] * Ova and parasites, stool (06/28/2018 1:32 PM EDT) Specimen Source/ Description STOOL STOOL STOOL [facility] Special Requests None [facility] DIRECT EXAM No parasites found by Trichrome Stain [facility] DIRECT EXAM NO PARASITES FOUND BY DIRECT OR CONCENTRATION METHODS [facility] Report Status 07/05/2018 FINAL [facility] Stool (Stool) 06/28/2018 1:3 2 PM EDT 06/30/2018 1:43 PM EDT Anuradha Mahan [facility] MICROBIOLOGY - GENERAL ORD ERABLES Final Result Performing Organization Address City/[facility]/ZIP Co de Phone Number [address] [address] * C-Reactive Protein (04/28/2018 11:44 AM EST) C REACTIVE PROTEIN 1.4 0.0 - 4.0 mg/L [facility] Blood 04/28/2018 11:4 4 AM EST 04/28/2018 11:51 AM EST Anuradha Mahan [facility] BLOOD ORDERABLES Final Result [address] [address] * (ABNORMAL) Comprehensive metabolic panel (04/28/2018 11:44 AM EST) SODIUM 137 133 - 146 mmol/L [facility] POTASSIUM 4.4 3.3 - 5.1 mmol/L [facility] CHLORIDE 102 96 - 108 mmol/L [facility] CO2 22 21 - 35 mmol/L [facility] BUN 13 6 - 19 mg/dL [facility] CREATININE 0.70 0.5 - 1.5 mg/dL [facility] GLUCOSE 100(H) 70 - 99 mg/dL [facility] ALBUMIN 4.2 3.9 - 4.8 g/dL [facility] TOTAL PROTEIN 7.1 6.5 - 8.0 g/dL [facility] CALCIUM 9.1 8.4 - 10.3 mg/dL [facility] ALKALINE PHOSPHATASE 49 39 - 117 U/L [facility] TOTAL BILIRUBIN 0.4 0.0 - 1.2 mg/dL [facility] Comment: Results from certain multiple myeloma patients may show a positive bias in recovery. Not all multiple myeloma patients show the bias and severity of the bias may vary between patients. In very rare cases, gammopathy, in particular type IgM (Waldenstrom's macroglobulinemia), may cause unreliable results. AST 47(H) 0 - 37 U/L [facility] ALT 54(H) 0 - 40 U/L [facility] GLOBULIN 2.9 1 - 4.8 g/dL [facility] EGFR 103 >59 mL/min/1.7 3m2 [facility] Comment:If patient is black, multiply result by 1.159. Estimated glomerular filtration rate calculated using the CKD-EPI equation. ANION GAP 17 10 - 20 mmol/L [facility] Blood 04/28/2018 11:4 4 AM EST 04/28/2018 11:51 AM EST Anuradha Mahan [facility] BLOOD ORDERABLES Final Result Performing Organization Address City/State/[facility] Co de Phone Number [facility] [address] [place], [place] [id number] * (ABNORMAL) CBC and differential (04/28/2018 11:44 AM EST) WBC 7.70 3.40 - 11.20 K/uL [facility] RBC 3.94 3.80 - 4.80 M/uL [facility] HGB 13.2 12.0 - 15.0 g/dL [facility] HCT 39.2 36.0 - 46.0 % [facility] PLT 266 130 - 400 K/uL [facility] MCV 99.5(H) 79.0 - 98.0 fL [facility] MCH 33.5 27.0 - 34.8 pg [facility] MCHC 33.7 31.5 - 36.0 g/dL [facility] RDW 12.1 10.8 - 14.6 % [facility] MPV 11.0 9.4 - 12.4 fl [facility] NRBC 0.00 0.00 /100 WBCs [facility] ABSOLUTE NRBC 0.00 0.00 K/uL [facility] DIFF METHOD Auto [facility] NEUTS 63.6 45.30 - 77.70 % [facility] LYMPHS 28.3 12.30 - 39.70 % [facility] MONOS 5.6 4.10 - 12.80 % [facility] EOS 1.4 0 - 7.2 % [facility] BASOS 0.8 0 - 2.80 % [facility] Granulocytes, immature (%) 0.3 0.0 - 0.9 % [facility] ABSOLUTE NEUTS 4.90 1.40 - 7.70 K/uL [facility] ABSOLUTE LYMPHS 2.18 0.60 - 3.20 K/uL [facility] ABSOLUTE MONOS 0.43 0.11 - 0.59 K/uL [facility] ABSOLUTE EOS 0.11 0.01 - 0.50 K/uL [facility] ABSOLUTE BASOS 0.06 0.00 - 0.08 K/uL [facility] Granulocytes, immature 0.02 0.00 - 0.05 K/uL [facility] Blood 04/28/2018 11:4 4 AM EST 04/28/2018 11:51 AM EST Anuradha Mahan [facility] BLOOD ORDERABLES Final Result Performing Organization Address City/State/[facility] Co de Phone Number [address] [address] * Immunoglobulin A (04/28/2018 11:44 AM EST) IgA 199 70 - 400 mg/dL [facility] Blood 04/28/2018 11:4 4 AM EST 04/28/2018 11:51 AM EST Anuradha Mahan [facility] BLOOD ORDERABLES Final Result [facility] [address] [place] [address] * Tissue transglutaminase IgA (04/28/2018 11:44 AM EST) TTG IGA ANTIBODY <1.2 <4.0 (Negative) U/mL [facility] Blood 04/28/2018 11:4 4 AM EST 04/28/2018 11:52 AM EST us Anuradha Mahan [facility] BLOOD ORDERABLES Final Result [facility] [address] [place] [address] documented in this encounter Visit Diagnoses Diagnosis Bloating- Primary Flatulence, eructation, and gas pain Change in bowel habits Other symptoms involving digestive system Diarrhea, unspecified type documented in this encounter Care Teams Communications Instructor Relationship Specialty Start Date End Date Julián Brady MD [address] [address] [email or web address] PCP - General 03/03/17 12/21/22 Casandra Shnaks INSTRUMENT AND CONTROLS TECHNICIAN [address] [address] PCP - General Nurse Practitioner 12/22/22 Carrie Baltazar [place] [address] Historical LMR Provider 12/16/16 2 Julián Brady MD [address] [address] [email or web address] Historical LMR Provider 12/16/16 03/07/21 documented as of this encounter Additional Source Comments The information contained in this document represents components of the legal health record. It is not the complete legal health record.[facility]
== END 2024-12-03 15:32 | disposition home or self-care (01) ==
LOC: HO.MAMMO 15:31
PROVIDERS: PCP Internal Medicine Nephrology; Visit Provider Nurse Practitioner Family
DX: Z12.31 Encounter for screening mammogram for malignant neoplasm of breast (principal)
CPT/HCPCS: 77063; 77067

== ENCOUNTER → 2024-12-03 15:45 | Outpatient (BNV) | payer OTHER, SELFPAY | PROVIDERS: PCP Internal Medicine Nephrology; Visit Provider Internal Medicine | DX: Z12.31 Encounter for screening mammogram for malignant neoplasm of breast (principal) | CPT/HCPCS: 77063; 77067 ==